=== PATIENT | male | born 1935 | race Caucasian/White ===

== ENCOUNTER 2022-03-01 13:55 | Inpatient (IN) | payer MEDICARE, OTHER ==
[~2022-03-01 13:55] MED LIST: Iopamidol 370 76% 100 ML VIAL ONE
[2022-03-01 15:07] LABS: #Monocytes 0.5 10x3/uL (0.0-1.1); #Neutrophils 7.5 10x3/uL (1.5-8.4); %Basophils 0.3 % (0.0-2.0); %Eosinophils 0.4 % (0.0-6.0); %Lymphocytes 11.4 % (18.0-47.0); %Neutrophils 82.1 % (40.0-75.0); Hemoglobin 12.9 g/dL (13.5-17.5); Mean Corpuscular HGB CONC 34.3 g/dL (32.0-36.0); Mean Corpuscular Hemoglobin 29.7 pg (27.0-33.0); Mean Corpuscular Volume 86.6 fl (81.2-95.1); Mean Platelet Volume 9.9 fl (7.4-10.4); Platelet Count 338 10x3/uL (150-450); RBC Distribution Width 12.8 % (11.5-14.5); Red Blood Cell (RBC) Count 4.34 10x6/uL (4.32-5.72); White Blood Cell (WBC) Count 9.1 10x3/uL (3.5-10.5)
[2022-03-01] MEDS ORDERED: Diltiazem 125 MG/25 ML ONE (15:10)
[2022-03-01 15:13] LABS: ALT (SGPT) 19 U/L (8-55); AST (SGOT) 15 U/L (5-34); Alkaline Phosphatase 74 U/L (40-110); Anion Gap 14 mmol/L (10-20); BUN (Urea Nitrogen) 26 mg/dL (8.4-25.7); Bilirubin, Total 0.5 mg/dL (0.2-1.2); Calc. Creatinine Clearance 0 mL/min (70-130); Carbon Dioxide 23 mmol/L (23-31); Chloride 105 mmol/L (98-107); Estimated GFR 53; Globulin 2.2 g/dL (2.4-3.5); Glucose 129 mg/dL (83-110); Potassium 3.9 mmol/L (3.5-5.1); Protein, Total 6.2 g/dL (5.8-8.1); Sodium 138 mmol/L (136-145)
[2022-03-01 19:31] VITALS: BMI 25.9
[2022-03-01] MEDS ORDERED: Ondansetron PF 4 MG/2 ML Vial IVP PRN (19:31)
[2022-03-01] MEDS ORDERED: Senokot S 8.6-50 MG TAB PO PRN (19:31)
[2022-03-01] MEDS ORDERED: Zolpidem Tartrate 5 MG TAB PO PRN (19:31)
[2022-03-01] MEDS ORDERED: Calcium Carbonate 500 MG ChewTAB PO PRN (19:31)
[2022-03-01] MEDS ORDERED: Guaifenesin DM 100-10/5 ML UDCUP PO PRN (19:31)
[2022-03-01] MEDS ORDERED: Acetaminophen 325 MG TAB PO PRN (19:31)
[2022-03-01] MEDS ORDERED: Cyclobenzaprine 10 MG TAB PO PRN (19:34)
[2022-03-01] MEDS ORDERED: Sodium Chloride 0.9% 250 ML IV SCH (19:45)
[2022-03-01] MEDS ORDERED: Metoprolol Tartrate 5 MG/5 ML VIAL IVP SCH (19:45)
[2022-03-01] MEDS: Famotidine 20 MG TAB PO SCH (21:16)
[2022-03-01] MEDS: Apixaban 5 MG TAB PO SCH (21:16)
[2022-03-01] MEDS: Tamsulosin HCl 0.4 MG CAP PO SCH (21:16)
[2022-03-01] MEDS: Diltiazem 125 MG, Admixture Fee 1 EACH in Sodium Chloride 0.9% 100 ML IVPB SCH (22:24)
[2022-03-01 22:46] LABS: CKMB 2.3 ng/mL (0-6.6)
[2022-03-02 01:16] LABS: Bilirubin Neg (Negative); Blood, Urine Negative (Negative); Clarity Clear (Clear); Glucose, Urine (Dipstick) Normal (Negative); Ketone, Urine Negative (Negative); Leukocyte Negative (Negative); Nitrite Negative (Negative); Protein, Urine (Dipstick) Negative (Neg-Trace); Urobilinogen Normal mg/dL (Less than 2)
[2022-03-02 01:27] LABS: Bacteria/HPF None Seen HPF (None Seen); RBC/HPF None Seen HPF (0-3); Squamous Epithelial 0-3 HPF (0-3); WBC/HPF 0-3 HPF (0-3)
[2022-03-02 04:22] LABS: #Eosinphils 0.1 10x3/uL (0.0-0.5); #Monocytes 0.9 10x3/uL (0.0-1.1); #Neutrophils 5.8 10x3/uL (1.5-8.4); %Basophils 0.5 % (0.0-2.0); %Lymphocytes 21.6 % (18.0-47.0); %Monocytes 10.3 % (0.0-10.0); %Neutrophils 66.1 % (40.0-75.0); Hemoglobin 12.8 g/dL (13.5-17.5); Mean Corpuscular HGB CONC 34.2 g/dL (32.0-36.0); Mean Corpuscular Hemoglobin 29.4 pg (27.0-33.0); Mean Platelet Volume 9.7 fl (7.4-10.4); Platelet Count 304 10x3/uL (150-450); RBC Distribution Width 12.8 % (11.5-14.5); Red Blood Cell (RBC) Count 4.35 10x6/uL (4.32-5.72); White Blood Cell (WBC) Count 8.7 10x3/uL (3.5-10.5)
[2022-03-02 04:39] LABS: Anion Gap 12 mmol/L (10-20); BUN (Urea Nitrogen) 22 mg/dL (8.4-25.7); Calc. Creatinine Clearance 65 mL/min (70-130); Calcium 9.3 mg/dL (7.8-10.44); Carbon Dioxide 23 mmol/L (23-31); Chloride 107 mmol/L (98-107); Estimated GFR 65; Glucose 144 mg/dL (83-110); Magnesium 2.1 mg/dL (1.6-2.6); Potassium 3.2 mmol/L (3.5-5.1); Sodium 139 mmol/L (136-145)
[2022-03-02 04:55] LABS: CKMB 2.5 ng/mL (0-6.6)
[2022-03-02] MEDS ORDERED: Potassium Chloride 20 MEQ TAB PO SCH ×2 (06:00→09:00)
[2022-03-02] MEDS: Cyanocobalamin (Vitamin B-12) 1,000 MCG TAB PO SCH (08:01)
[2022-03-02] MEDS: Famotidine 20 MG TAB PO SCH ×2 (08:02→20:42)
[2022-03-02] MEDS: Multivit, Therapeutic 1 TAB PO SCH (08:02)
[2022-03-02] MEDS: predniSONE 10 MG TAB PO SCH (08:03)
[2022-03-02] MEDS: Apixaban 5 MG TAB PO SCH ×2 (08:03→20:42)
[2022-03-02] MEDS: Ascorbic Acid 500 mg Chewable Tablet PO SCH (08:04)
[2022-03-02] MEDS ORDERED: ABIRATERONE ACETATE 250 MG PO SCH (09:00)
[2022-03-02] MEDS ORDERED: PATIENT'S HOME MEDICATION PO SCH (14:30)
[2022-03-02] MEDS: Diltiazem 125 MG, Admixture Fee 1 EACH in Sodium Chloride 0.9% 100 ML IVPB SCH (17:28)
[2022-03-02] MEDS: Tamsulosin HCl 0.4 MG CAP PO SCH (20:42)
[2022-03-03] MEDS: Diltiazem 125 MG, Admixture Fee 1 EACH in Sodium Chloride 0.9% 100 ML IVPB SCH (05:15)
[2022-03-03] MEDS ORDERED: PROPOFOL 20 ML ONE (08:07)
[2022-03-03] MEDS ORDERED: PATIENT'S HOME MEDICATION PO SCH (09:00)
[2022-03-03] MEDS: Multivit, Therapeutic 1 TAB PO SCH (09:45)
[2022-03-03] MEDS: Apixaban 5 MG TAB PO SCH (09:45)
[2022-03-03] MEDS: Ascorbic Acid 500 mg Chewable Tablet PO SCH (09:45)
[2022-03-03] MEDS: predniSONE 10 MG TAB PO SCH (09:45)
[2022-03-03] MEDS: Cyanocobalamin (Vitamin B-12) 1,000 MCG TAB PO SCH (09:46)
[2022-03-03] MEDS: Famotidine 20 MG TAB PO SCH (09:46)
[2022-03-03 13:32] VITALS: BP 148/102; TEMP 97.6
== END 2022-03-03 13:37 | disposition home or self-care (01) | DRG 281 ==
LOC: CSHERS 13:55 → CSHIMCU 18:16
PROVIDERS: ADMIT Family Medicine; ATTEND Family Medicine
PROC: 5A2204Z Restoration of Cardiac Rhythm, Single (ICD-10-PCS; principal; 2022-03-03)
DX: I48.92 Unspecified atrial flutter (principal); I21.A1 Myocardial infarction type 2; C79.51 Secondary malignant neoplasm of bone; N17.9 Acute kidney failure, unspecified; R79.89 Other specified abnormal findings of blood chemistry; I10 Essential (primary) hypertension; I48.0 Paroxysmal atrial fibrillation; E78.5 Hyperlipidemia, unspecified; Z96.651 Presence of right artificial knee joint; I25.10 Atherosclerotic heart disease of native coronary artery without angina pectoris; M19.90 Unspecified osteoarthritis, unspecified site; J44.9 Chronic obstructive pulmonary disease, unspecified; E87.6 Hypokalemia; C61 Malignant neoplasm of prostate; Z88.6 Allergy status to analgesic agent; Z79.899 Other long term (current) drug therapy; Z79.52 Long term (current) use of systemic steroids; Z86.711 Personal history of pulmonary embolism; Z80.9 Family history of malignant neoplasm, unspecified; Z87.891 Personal history of nicotine dependence; Z85.828 Personal history of other malignant neoplasm of skin
CPT/HCPCS: 36415; 71045; 71275; 80048; 80053; 81001; 82553; 83735; 83880; 84443; 84484; 85025; 92960; 93005; 93312; 96374; J2704; J3490; J7030; J7512; Q9967